=== PATIENT | male | born 1960 ===

== ENCOUNTER 2017-09-30 06:02 | Day surgery (SDC) | payer MEDICARE, OTHER ==
[2017-09-30] MEDS ORDERED: DEXAMETHASONE 0.1% OPHTH SOL 1 DROP ONE (07:00)
[2017-09-30] MEDS ORDERED: LIDOCAINE 1% PF 2 ML AMP INJ ONE (07:00)
[2017-09-30] MEDS ORDERED: BRIMONIDINE 0.2% OPHTH DROPS ONE (07:00)
[2017-09-30] MEDS ORDERED: TOBRAMYCIN SULF 0.3 % OPHT SOL 1 DROP ONE (07:00)
[2017-09-30] MEDS ORDERED: TROP 1%/CYCLOPEN 1%/PHENYL 2% DROPS ONE (10:28)
[2017-09-30] MEDS ORDERED: PROPARACAINE 0.5% OPHTH SOL 15 ML BTTL ONE (10:28)
[2017-09-30] MEDS ORDERED: MIDAZOLAM INJ 2 MG/2 ML VIAL ONE (12:22)
== END 2017-09-30 14:35 | disposition home or self-care (01) ==
LOC: AMB 06:02
PROVIDERS: ATTEND Ophthalmology
DX: H26.9 Unspecified cataract (principal); Z53.9 Procedure and treatment not carried out, unspecified reason